=== PATIENT | female | born 1975 | race Caucasian/White ===

== ENCOUNTER 2022-01-13 00:24 | Emergency (ER) | payer SELFPAY ==
[2022-01-13] MEDS ORDERED: Clindamycin 150 MG CAP ONE (01:13)
== END 2022-01-13 01:25 | disposition home or self-care (01) ==
LOC: BURERS 00:24
DX: L03.114 Cellulitis of left upper limb (principal); L73.2 Hidradenitis suppurativa; L01.00 Impetigo, unspecified
CPT/HCPCS: 99282

== ENCOUNTER 2023-11-29 19:08 | Emergency (ER) | payer MEDICARE, SELFPAY ==
[2023-11-29] MEDS ORDERED: Ondansetron ODT 4 MG TAB ONE (19:33)
[2023-11-29] MEDS ORDERED: Ketorolac Tromethamine 30 MG (1 mL) VIAL ONE (19:33)
[2023-11-29 20:03] LABS: #Basophils 0.1 thou/uL (0.0-0.2); #Eosinphils 0.1 thou/uL (0.0-0.7); #Lymphocytes 1.2 thou/uL (1.20-3.40); #Monocytes 1.1 thou/uL (0.11-0.59); #Neutrophils 10.1 thou/uL (1.40-6.50); %Basophils 1.1 % (0.0-1.0); %Eosinophils 0.9 % (0.0-10.0); %Lymphocytes 9.4 % (21.0-51.0); %Monocytes 8.4 % (0.0-10.0); %Neutrophils 80.1 % (42.0-75.0); Hematocrit 35.7 % (36.0-47.0); Hemoglobin 12.4 g/dL (12.0-16.0); Mean Corpuscular HGB CONC 34.7 g/dL (32.0-36.0); Mean Corpuscular Hemoglobin 33.9 pg (27.0-31.0); Mean Corpuscular Volume 97.6 fl (78.0-98.0); Mean Platelet Volume 5.9 fL (7.4-10.4); Platelet Count 299 10x3/uL (130-400); RBC Distribution Width 10.9 % (11.5-14.5); Red Blood Cell (RBC) Count 3.66 mill/uL (4.20-5.40); White Blood Cell (WBC) Count 12.6 10x3/uL (4.8-10.8)
[2023-11-29 20:20] LABS: BHCG - Serum Negative (NEGATIVE); Pregs Control Background? CLEAR/WHITE (CLR/WHITE); Pregs Control Bar Appear? YES (CONTROL BAR)
[2023-11-29 20:27] LABS: PTT 30.4 sec (22.9-36.1); Prothrombin Time 12.7 sec (12.0-14.7)
[2023-11-29 20:30] LABS: ALT (SGPT) 33 U/L (8-55); AST (SGOT) 31 U/L (5-34); Albumin 2.6 g/dL (3.5-5.0); Alkaline Phosphatase 94 U/L (40-110); Anion Gap 19 mmol/L (10-20); BUN (Urea Nitrogen) 10 mg/dL (7.0-18.7); Bilirubin, Total 0.3 mg/dL (0.2-1.2); CK (CPK) 26 U/L (29-168); Calc. Creatinine Clearance 0 mL/min (70-130); Calcium 8.5 mg/dL (7.8-10.44); Carbon Dioxide 23 mmol/L (22-29); Chloride 101 mmol/L (98-107); D-Dimer Test 1.38 mcg/mL (0.27-0.43); Estimated GFR 108; Globulin 3.8 g/dL (2.4-3.5); Glucose 97 mg/dL (70-105); Potassium 3.5 mmol/L (3.5-5.1); Protein, Total 6.4 g/dL (6.0-8.3); Sodium 139 mmol/L (136-145)
[2023-11-29 20:42] LABS: Influenza A by NAA Not Detected (NotDetected); Influenza B by NAA Not Detected (NotDetected); SARS-CoV-2 NAA Rapid Test Not Detected (NotDetected)
== END 2023-11-29 20:10 | disposition short-term general hospital (02) ==
LOC: BURERS 19:08
DX: M79.89 Other specified soft tissue disorders (principal)
CPT/HCPCS: 80053; 82550; 83735; 84703; 85025; 85379; 85610; 85730; 96372; J1885; Q0162